=== PATIENT | female | born 1970 | race Caucasian/White ===

== ENCOUNTER → 2016-12-30 16:31 | Outpatient (CLI) | payer MEDICARE ==
[2016-04-15 14:31] VITALS: BMI 27.5
[~2016-12-30 16:31] MED LIST: AMITRIPTYLINE100 MG PO; ATIVAN1 MG PO; ENDOCET 10-3251 TAB PO; ESTRACE1 MG PO; PEPCID40 MG PO; PREDNISONE20 MG PO; PRILOSEC20 MG PO; PROZAC20 MG PO
== END | disposition home or self-care (01) ==
LOC: D.MAMMO 13:00
DX: N63 Unspecified lump in breast (principal)

== ENCOUNTER 2017-03-23 15:18 | Emergency (ER) | payer MEDICARE ==
[2016-04-15 14:31] VITALS: BMI 27.5
[2017-03-23 16:05] LABS: BASOPHILS 0.7 % (0-2); EOSINOPHILS 0.7 % (0-7); HEMATOCRIT 36.6 % (36.0-48.0); HEMOGLOBIN 11.8 g/dL (12-16); IMMATURE GRANULOCYTES 0.3 % (0-5); LYMPHOCYTES 41.4 % (15-50); MCH 26.2 pg (26.0-34.0); MCHC 32.2 g/dL (31.0-37.0); MCV 81.3 fL (80.0-100.0); MEAN PLATELET VOLUME 8.9 fL (7.4-10.4); NEUTROPHILS 48.9 % (40-80); PLATELET COUNT 266 10x3/uL (130-400); RDW 14.8 % (11.5-14.5); WBC 5.9 10x3/uL (4.8-10.8)
[2017-03-23 16:35] LABS: ALKALINE PHOSPHATASE 118 U/L (46-116); ALT (SGPT) 31 U/L (10-68); BILIRUBIN - TOTAL 0.14 mg/dL (0.2-1.3); CALC OSMOLALITY 278 mosm/kg (275-300); CALCIUM 9.5 mg/dL (8.5-10.1); CARBON DIOXIDE 26.1 mmol/L (21.0-32.0); CHLORIDE - SERUM 101 mmol/L (98-107); CREATININE - SERUM 1.2 mg/dL (0.6-1.3); GLUCOSE 98 mg/dL (74-106); POTASSIUM - SERUM 3.5 mmol/L (3.5-5.1); PROTEIN - SERUM 7.6 g/dL (6.4-8.2); SODIUM 139 mmol/L (136-145); UREA NITROGEN 15 mg/dL (7-18); eGFR NON AFRICAN AMERICAN 51 mL/min (90-120)
[2017-03-23 16:51] LABS: CHOLESTEROL, TOTAL 204 mg/dL (0-200); CKMB 0.5 U/L (0.0-3.6); CREATINE KINASE 47 UL (21-215); HDL CHOLESTEROL 104 mg/dL (32-96); LDL CHOLESTEROL 84 mg/dL (0-100); LDL-HDL RATIO 0.8 ratio (1.5-3.5); TRIGLYCERIDE 80 mg/dL (30-200)
[2017-03-23 16:53] LABS: TROPONIN-I < 0.017 ng/mL (0.000-0.060)
== END 2017-03-23 17:45 | disposition home or self-care (01) ==
LOC: D.ER 15:18
PROVIDERS: Emergency Medicine
DX: M94.0 Chondrocostal junction syndrome [Tietze] (principal); F32.9 Major depressive disorder, single episode, unspecified; R00.0 Tachycardia, unspecified

== ENCOUNTER → 2018-06-07 06:33 | Outpatient (CLI) | payer MEDICARE ==
[2016-04-15 14:31] VITALS: BMI 27.5
== END | disposition home or self-care (01) ==
LOC: D.US 06:33
DX: R10.9 Unspecified abdominal pain (principal); R10.2 Pelvic and perineal pain; R63.4 Abnormal weight loss

== ENCOUNTER → 2018-06-10 10:23 | Outpatient (CLI) | payer MEDICARE ==
[2016-04-15 14:31] VITALS: BMI 27.5
== END | disposition home or self-care (01) ==
LOC: D.CT 10:23
DX: R63.4 Abnormal weight loss (principal); R10.9 Unspecified abdominal pain; R79.89 Other specified abnormal findings of blood chemistry

== ENCOUNTER → 2018-08-12 08:49 | Outpatient (CLI) | payer MEDICARE ==
[2016-04-15 14:31] VITALS: BMI 27.5
[2018-08-12 09:23] LABS: HEMATOCRIT 35.5 % (36.0-48.0); HEMOGLOBIN 11.5 g/dL (12-16); MCH 27.6 pg (26.0-34.0); MCHC 32.4 g/dL (31.0-37.0); MCV 85.3 fL (80.0-100.0); MEAN PLATELET VOLUME 8.5 fL (7.4-10.4); PLATELET COUNT 241 10x3/uL (130-400); RBC 4.16 10x6/uL (4.00-5.40); RDW 14.6 % (11.5-14.5); WBC 2.9 10x3/uL (4.8-10.8)
[2018-08-12 09:33] LABS: INR 0.92 (0.85-1.17)
[2018-08-12 09:48] LABS: % SATURATION 15 % (15-55); IRON 63 ug/dl (35-150); TOTAL IRON BIND CAPACITY 398 ug/dl (260-445); UNSAT IRON BIND CAPACITY 335 ug/dl (150-375)
[2018-08-12 09:56] LABS: BILIRUBIN - DIRECT 0.09 mg/dL (0.00-0.30); BILIRUBIN - INDIRECT 0.1 mg/dL (0.00-1.00); BILIRUBIN - TOTAL 0.19 mg/dL (0.2-1.3); CALCIUM 8.4 mg/dL (8.5-10.1); CARBON DIOXIDE 30.1 mmol/L (21.0-32.0); CREATININE - SERUM 0.9 mg/dL (0.6-1.3); POTASSIUM - SERUM 4.1 mmol/L (3.5-5.1); PROTEIN - SERUM 7.6 g/dL (6.4-8.2)
[2018-08-12 10:19] LABS: EOSINOPHILS 2 % (0-7); HYPOCHROMASIA OCC; LYMPHOCYTES 58 % (15-50); MONOCYTES 6 % (2-11); NEUTROPHILS 31 % (40-80); PLATELET ESTIMATE NORMAL; ROULEAUX OCC
[2018-08-13 07:29] LABS: HAPTOGLOBIN 89 mg/dL (34-200); HEPATITIS C ANTIBODY <0.1 (0.0-0.9)
[2018-08-13 09:16] LABS: FOLATE (FOLIC ACID) - SERUM 19.8 ng/mL (>3.0)
[2018-08-13 11:21] LABS: ANA REFLEX - DIRECT Negative (Negative)
[2018-08-15 18:07] LABS: MITOCHONDRIAL ANTIBODY 4.6 Units (0.0-20.0)
== END | disposition home or self-care (01) ==
LOC: D.LAB 08:49
PROVIDERS: Internal Medicine Gastroenterology
DX: R79.89 Other specified abnormal findings of blood chemistry (principal); R10.84 Generalized abdominal pain; R63.4 Abnormal weight loss; K59.00 Constipation, unspecified; R63.8 Other symptoms and signs concerning food and fluid intake

== ENCOUNTER → 2018-09-13 09:09 | Outpatient (CLI) | payer MEDICARE ==
[2016-04-15 14:31] VITALS: BMI 27.5
[~2018-09-13 09:09] MED LIST changes: +NORCO 10-325 TA1 TAB PO; +SOMA350 MG PO
[2018-09-13 09:50] LABS: ALBUMIN 4.2 g/dL (3.4-5.0); BILIRUBIN - DIRECT 0.14 mg/dL (0.00-0.30); BILIRUBIN - INDIRECT 0.2 mg/dL (0.00-1.00); BILIRUBIN - TOTAL 0.34 mg/dL (0.2-1.3); PROTEIN - SERUM 7.9 g/dL (6.4-8.2)
== END | disposition home or self-care (01) ==
LOC: D.NM 09:00
PROVIDERS: Internal Medicine Gastroenterology
DX: R10.13 Epigastric pain (principal); R11.2 Nausea with vomiting, unspecified; R14.3 Flatulence; R14.0 Abdominal distension (gaseous); R10.11 Right upper quadrant pain

== ENCOUNTER 2018-09-20 05:33 | Outpatient (CLI) | payer MEDICARE ==
[~2018-09-20] VITALS: Ht 157.5 cm; Wt 52.3 kg
[~2018-09-20 05:33] MED LIST changes: -NORCO 10-325 TA1 TAB PO; -SOMA350 MG PO
[2018-09-20 05:59] LABS: BASOPHILS 0.7 % (0-2); HEMATOCRIT 35.8 % (36.0-48.0); HEMOGLOBIN 11.8 g/dL (12-16); LYMPHOCYTES 55.6 % (15-50); MCH 28.4 pg (26.0-34.0); MCV 86.1 fL (80.0-100.0); MEAN PLATELET VOLUME 8.7 fL (7.4-10.4); MONOCYTES 8.6 % (2-11); NEUTROPHILS 32.1 % (40-80); PLATELET COUNT 268 10x3/uL (130-400); RBC 4.16 10x6/uL (4.00-5.40); RDW 14.1 % (11.5-14.5)
[2018-09-20 06:07] LABS: ANION GAP 11.8 mmol/L (8-16); CALCIUM 9.3 mg/dL (8.5-10.1); CARBON DIOXIDE 30.2 mmol/L (21.0-32.0)
[2018-09-20 06:13] LABS: APTT 28.9 SECONDS (22.8-39.4); INR 0.92 (0.85-1.17); PROTIME 11.9 SECONDS (11.6-15.0)
[2018-09-20] MEDS ORDERED: NORCO 10-325 TA1 TAB PO (06:27)
[2018-09-20] MEDS ORDERED: SOMA350 MG PO (06:28)
[2018-09-20 06:37] VITALS: BP 115/73; Ht 157.5 cm; Wt 52.3 kg
== END 2018-09-20 15:00 | disposition home or self-care (01) ==
LOC: D.SP 05:33 → D.CT 08:00 → D.SP 15:00
PROVIDERS: General Practice
DX: R94.5 Abnormal results of liver function studies (principal); Z01.812 Encounter for preprocedural laboratory examination

== ENCOUNTER 2019-08-07 20:05 | Emergency (ER) | payer MEDICARE ==
[~2019-08-07] VITALS: Ht 157.5 cm; Wt 53.6 kg
[~2019-08-07 20:05] MED LIST changes: +NORCO 10-325 TA1 TAB PO; +SOMA350 MG PO
[2019-08-07 20:36] VITALS: Ht 157.5 cm; Wt 53.6 kg
[2019-08-07 22:42] VITALS: BP 110/70
== END 2019-08-07 22:42 | disposition home or self-care (01) ==
LOC: D.ER 20:05
DX: S91.111A Laceration without foreign body of right great toe without damage to nail, initial encounter (principal); W26.9XXA Contact with unspecified sharp object(s), initial encounter; Y93.89 Activity, other specified; Y92.89 Other specified places as the place of occurrence of the external cause

== ENCOUNTER → 2021-04-05 08:09 | Outpatient (CLI) | payer MEDICARE ==
[2020-12-29 17:54] VITALS: BMI 22.3
[~2021-04-05 08:09] MED LIST changes: +DULCOLAX STOOL100 MG PO; +MIRALAX17 GM PO
== END | disposition home or self-care (01) ==
LOC: D.RAD 08:00
PROVIDERS: ATTEND Internal Medicine Gastroenterology
DX: R10.13 Epigastric pain (principal); R13.10 Dysphagia, unspecified; R12 Heartburn; R11.2 Nausea with vomiting, unspecified

== ENCOUNTER → 2021-04-08 10:25 | Outpatient (CLI) | payer MEDICARE ==
[2020-12-29 17:54] VITALS: BMI 22.3
== END | disposition home or self-care (01) ==
LOC: D.NM 10:25
PROVIDERS: ATTEND Internal Medicine Gastroenterology
DX: R10.13 Epigastric pain (principal); R13.10 Dysphagia, unspecified; R12 Heartburn; R11.2 Nausea with vomiting, unspecified